=== PATIENT | female | born 1965 | race African-American/Black ===

== ENCOUNTER 2016-04-07 12:48 | Emergency (ER) | payer SELFPAY ==
--- NOTE | 2016-04-07 12:53 | ER Document Report ---
ED Medical Screen (RME) - General Chief Complaint: Chest Pain > 30 Stated Complaint: CHEST PAIN Notes: Patient is a 51-year-old female is complaining of right-sided chest pain. onset: this Am right anterior chest, does not hurt to palpation. with radiation to jaw and arm. +HTN, HLD, -DM, tobacco use stress test greater than a year-nl allergic to ASA and refusing I have greeted and performed a rapid initial assessment of this patient. A comprehensive ED assessment and evaluation of the patient, analysis of test results and completion of the medical decision making process will be conducted by additional ED providers. TRAVEL OUTSIDE OF THE [place] IN LAST 30 DAYS: No - Related Data Allergies/Adverse Reactions: aspirin [Aspirin] Allergy (Verified 04/07/16 12:51) ibuprofen [From Motrin] Allergy (Verified 04/07/16 12:51) iodine [Iodine] Allergy (Verified 04/07/16 12:51) ketorolac tromethamine [From Toradol] Allergy (Verified 04/07/16 12:51) nafarelin [Nafarelin] Allergy (Verified 04/07/16 12:51) naproxen [Naproxen] Allergy (Verified 04/07/16 12:51) Shellfish * [Shellfish] Allergy (Verified 04/07/16 12:51) tramadol HCl [From Ultram] Allergy (Verified 04/07/16 12:51) Past Medical History - Social History Family history: Hypertension, Malignancy - Past Medical History Cardiac Medical History: Reports: Hx Heart Attack, Hx Hypercholesterolemia Neurological Medical History: Reports: Hx Migraine GI Medical History: Reports: Hx Ulcer Musculoskeltal Medical History: Reports Hx Arthritis, Reports Hx Musculoskeletal Deformity, Reports Hx Musculoskeletal Trauma Traumatic Medical History: Reports: Hx Fractures Past Surgical History: Reports: Hx Tubal Ligation - Immunizations Immunizations up to date: Yes Hx Diphtheria, Pertussis, Tetanus Vaccination: Yes
[2016-04-07] MEDS ORDERED: DIPHENHYDRAMINE HCL 25 MG CAPSULE PO ONE (13:02)
--- NOTE | 2016-04-07 13:23 | EKG REPORT ---
SEVERITY:- NORMAL ECG - SINUS RHYTHM : Confirmed by: Nitin Gonzalez MD 07-Apr-2016 13:22:51
[2016-04-07 13:28] LABS: ABSOLUTE EOSINOPHILS # (AUTO) 0.1 10^3/uL (0.0-0.6); ABSOLUTE LYMPHOCYTES (AUTO) 3.3 10^3/uL (0.5-4.7); ABSOLUTE MONOCYTES (AUTO) 0.7 10^3/uL (0.1-1.4); ABSOLUTE NEUT (AUTO) 3.6 10^3/uL (1.7-8.2); BASOPHILS % (AUTO) 0.2 % (0-2); EOSINOPHILS % (AUTO) 0.9 % (0-6); HEMATOCRIT 37.5 % (36.0-47.0); HEMOGLOBIN 12.2 g/dL (12.0-15.5); HGB HCT DIFFERENCE -0.9; LYMPHOCYTES % (AUTO) 42.6 % (13-45); MEAN CORPUSCULAR HEMOGLOBIN 27.5 pg (27.0-33.4); MEAN CORPUSCULAR HGB CONC 32.5 g/dL (32.0-36.0); MEAN CORPUSCULAR VOLUME 85 fl (80-97); MONOCYTES % (AUTO) 8.7 % (3-13); RED BLOOD COUNT 4.43 10^6/uL (3.72-5.28); RED CELL DISTRIBUTION WIDTH 14.3 % (11.5-14.0); SEGMENTED NEUTROPHILS % (AUTO) 47.6 % (42-78); WHITE BLOOD COUNT 7.7 10^3/uL (4.0-10.5)
[2016-04-07 13:48] LABS: ALANINE AMINOTRANSFERASE 20 U/L (9-52); ALBUMIN 4.1 g/dL (3.5-5.0); ALKALINE PHOSPHATASE 58 U/L (38-126); ANION GAP 12 (5-19); ASPARTATE AMINO TRANSFERASE 14 U/L (14-36); BILIRUBIN,TOTAL 0.4 mg/dL (0.2-1.3); BLOOD UREA NITROGEN 9 mg/dL (7-20); CALCIUM 9.5 mg/dL (8.4-10.2); CARBON DIOXIDE 26 mmol/L (22-30); CHLORIDE 101 mmol/L (98-107); CREATINE KINASE 104 U/L (30-135); CREATININE RESULT 0.77 mg/dL (0.52-1.25); GLUCOSE 103 mg/dL (75-110); SODIUM 138.5 mmol/L (137-145); TOTAL PROTEIN 7.4 g/dL (6.3-8.2)
[2016-04-07 14:01] LABS: TROPONIN I < 0.012 ng/mL
--- NOTE | 2016-04-07 16:02 | ER Document Report ---
ED Cardiac - General Time seen by provider: 16:00 Mode of Arrival: Ambulatory Information source: Patient TRAVEL OUTSIDE OF THE [place] IN LAST 30 DAYS: No - HPI Patient complains to provider of: Chest pain <TRENTON ORELLANA - Last Filed: 04/07/16 19:12> <KAREN HYLTON - Last Filed: 04/07/16 22:37> - General Chief Complaint: Chest Pain > 30 Stated Complaint: CHEST PAIN Notes: Patient is a 51-year-old female presenting to the emergency department with complaints of chest pain. Patient states that her pain was onset this morning. Patient states that she has had chest pain before that time of exam patient states that her chest pain feels like indigestion. Patient states that she took some Pepto-Bismol without much relief. Patient also states that she has history of ulcers. Patient states that she is out of her omeprazole and her simvastatin due to a change in her insurance. Patient states her PCP is [facility]. (TRENTON ORELLANA) - Related Data Allergies/Adverse Reactions: aspirin [Aspirin] Allergy (Verified 04/07/16 12:51) ibuprofen [From Motrin] Allergy (Verified 04/07/16 12:51) iodine [Iodine] Allergy (Verified 04/07/16 12:51) ketorolac tromethamine [From Toradol] Allergy (Verified 04/07/16 12:51) nafarelin [Nafarelin] Allergy (Verified 04/07/16 12:51) naproxen [Naproxen] Allergy (Verified 04/07/16 12:51) Shellfish * [Shellfish] Allergy (Verified 04/07/16 12:51) tramadol HCl [From Ultram] Allergy (Verified 04/07/16 12:51) Past Medical History - General Information source: Patient - Social History Smoking Status: Never Smoker Chew tobacco use (# tins/day): No Frequency of alcohol use: None Drug Abuse: None Family History: Hypertension, Malignancy Patient has suicidal ideation: No Patient has homicidal ideation: No - Past Medical History Cardiac Medical History: Reports: Hx Heart Attack, Hx Hypercholesterolemia Neurological Medical History: Reports: Hx Migraine GI Medical History: Reports: Hx Ulcer Musculoskeltal Medical History: Reports Hx Arthritis, Reports Hx Musculoskeletal Deformity, Reports Hx Musculoskeletal Trauma Traumatic Medical History: Reports: Hx Fractures Past Surgical History: Reports: Hx Tubal Ligation - Immunizations Immunizations up to date: Yes Hx Diphtheria, Pertussis, Tetanus Vaccination: Yes <TRENTON ORELLANA - Last Filed: 04/07/16 19:12> Review of Systems - Review of Systems Constitutional: No symptoms reported EENT: No symptoms reported Cardiovascular: See HPI, Chest pain Respiratory: No symptoms reported Gastrointestinal: No symptoms reported Genitourinary: No symptoms reported Female Genitourinary: No symptoms reported Musculoskeletal: No symptoms reported Skin: No symptoms reported Hematologic/Lymphatic: No symptoms reported Neurological/Psychological: No symptoms reported -: Yes All other systems reviewed and negative <TRENTON ORELLANA - Last Filed: 04/07/16 19:12> Physical Exam - Vital signs Interpretation: Normal - General General appearance: Appears well, Alert In distress: Mild - HEENT Head: Normocephalic, Atraumatic Eyes: Normal Pupils: PERRL - Respiratory Respiratory status: No respiratory distress Chest status: Tender - Mild anterior chest wall tenderness to palpation Breath sounds: Normal Chest palpation: Normal - Cardiovascular Rhythm: Regular Heart sounds: Normal auscultation Murmur: No - Abdominal Inspection: Normal Distension: No distension Bowel sounds: Normal Tenderness: Tender - Mild epigastric tenderness to palpation Organomegaly: No organomegaly - Back Back: Normal, Nontender - Extremities General upper extremity: Normal inspection, Normal ROM, Normal strength General lower extremity: Normal inspection, Normal ROM, Normal strength - Neurological Neuro grossly intact: Yes Cognition: Normal Orientation: AAOx4 Jose Coma Scale Eye Opening: Spontaneous [place] Coma Scale Verbal: Oriented Jose Coma Scale Motor: Obeys Commands Jose Coma Scale Total: 15 Speech: Normal - Psychological Associated symptoms: Normal affect, Normal mood - Skin Skin Temperature: Warm Skin Moisture: Dry <TRENTON ORELLANA - Last Filed: 04/07/16 19:12> Course - Laboratory Result Diagrams: 04/07/16 13:12 04/07/16 13:12 <TRENTON ORELLANA - Last Filed: 04/07/16 19:12> - Laboratory Result Diagrams: 04/07/16 13:12 04/07/16 13:12 <KAREN HYLTON - Last Filed: 04/07/16 22:37> - Re-evaluation Re-evalutation: 04/07/16 Patient is a 51-year-old female with a history of reflux. This feels similar to episodes before. EKG within normal limits. Troponin negative 2. Patient feels better after GI cocktail. She'll be discharged home with a prescription for lansoprazole, Carafate, and ranitidine. Return if any worsening or concerning symptoms. Follow up with PMD. Stable for discharge. Understands agrees with plan. (KAREN HYLTON) - Vital Signs Vital signs: Temp Pulse Resp BP Pulse Ox 98.3 F 74 20 121/59 L 99 04/07/16 18:30 04/07/16 18:30 04/07/16 18:30 04/07/16 18:30 04/07/16 18:30 (TRENTON ORELLANA) (KAREN HYLTON) - Laboratory Laboratory results interpreted by me: 04/07/16 13:12 RDW 14.3 H (TRENTON ORELLANA) (KAREN HYLTON) Discharge <TRENTON ORELLANA - Last Filed: 04/07/16 19:12> <KAREN HYLTON - Last Filed: 04/07/16 22:37> - Discharge Clinical Impression: Atypical chest pain GERD (gastroesophageal reflux disease) Qualifiers: Esophagitis presence: with esophagitis Qualified Code(s): K21.0 - Gastro- esophageal reflux disease with esophagitis Condition: Stable Disposition: HOME, SELF-CARE Instructions: Chest Pain of Unclear Cause ([facility]), Reflux Disease (GERD) ([facility]), Gastroenterology Prescriptions: Famotidine 40 mg PO BID #30 tablet Lansoprazole [Prevacid 30 mg Odt Tablet] 30 mg PO ACBRKFST #30 tab.rap. Sucralfate [Carafate 1 gm Tablet] 1 gm PO ACHS #60 tablet Scribe Attestation: 04/07/16 22:37 I personally performed the services described in the documentation, reviewed and edited the documentation which was dictated to the scribe in my presence, and it accurately records my words and actions. (KAREN HYLTON) Scribe Documentation - Scribe Written by Scribe:: Trenton Orellana 04/07/16 19:15 acting as scribe for :: Lulú <TRENTON ORELLANA - Last Filed: 04/07/16 19:12>
[2016-04-07] MEDS ORDERED: FAMOTIDINE 20 MG TABLET PO ONE (17:10)
[2016-04-07] MEDS ORDERED: LANSOPRAZOLE 30 MG TAB.RAP.DR PO ONE (17:10)
[2016-04-07] MEDS ORDERED: SUCRALFATE 1 GM TABLET PO ONE (17:10)
[2016-04-07 18:32] VITALS: BP 121/59
== END 2016-04-07 18:33 | disposition home or self-care (01) ==
LOC: ER 12:48
DX: R07.89 Other chest pain (principal); K21.0 Gastro-esophageal reflux disease with esophagitis; E78.00 Pure hypercholesterolemia, unspecified; Z88.6 Allergy status to analgesic agent; Z91.013 Allergy to seafood; I25.2 Old myocardial infarction; Z98.51 Tubal ligation status
CPT/HCPCS: 36415; 71010; 80053; 82550; 82553; 84484; 85025; 93005; 93010; 99285

== ENCOUNTER 2016-08-17 13:46 | Emergency (ER) | payer SELFPAY ==
--- NOTE | 2016-08-17 15:48 | ER Document Report ---
HPI - HPI Patient complains to provider of: back, knee and heel pain Pain Level: 5 Context: 51-year-old female status emergency department complaining of lower back pain, right knee pain right heel pain. Patient states she has a history of lumbar degenerative disc disease diagnosed 2014. She was on pain management up until November 2015 when she lost her medications the longer to continue her care there. Patient states that her pain is in the center of her back with associated sciatica of the right leg. There is a stool incontinence, saddle anesthesia. Her right knee pain she states is worse in the morning but improves as the day. She states her whole knee hurts with movement. Worse getting up into a car. She also admits to right heel pain which is worse at night after being on her feet all day. Her knee pain and foot pain and due to her for the past month. 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 Denies any trauma No primary care provider Past medical history significant for hyperlipidemia Past surgical history significant for tubal ligation Allergies to aspirin products - CARDIOVASCULAR Cardiovascular: DENIES: Chest pain - REPRODUCTIVE Reproductive: DENIES: : - DERM Skin Color: Normal Past Medical History - Social History Smoking Status: Unknown if Ever Smoked Chew tobacco use (# tins/day): No Drug Abuse: None Family History: Hypertension, Malignancy Patient has suicidal ideation: No Patient has homicidal ideation: No - Past Medical History Cardiac Medical History: Reports: Hx Heart Attack, Hx Hypercholesterolemia Neurological Medical History: Reports: Hx Migraine Renal/ Medical History: Denies: Hx Peritoneal Dialysis GI Medical History: Reports: Hx Ulcer Musculoskeltal Medical History: Reports Hx Arthritis, Reports Hx Musculoskeletal Deformity, Reports Hx Musculoskeletal Trauma Traumatic Medical History: Reports: Hx Fractures Past Surgical History: Reports: Hx Tubal Ligation - Immunizations Immunizations up to date: Yes Hx Diphtheria, Pertussis, Tetanus Vaccination: Yes Vertical Provider Document - CONSTITUTIONAL Agree With Documented VS: Yes Exam Limitations: No Limitations General Appearance: WD/WN, No Apparent Distress - INFECTION CONTROL TRAVEL OUTSIDE OF THE [place] IN LAST 30 DAYS: No - RESPIRATORY O2 Sat by Pulse Oximetry: 99 - BACK Back: Normal Inspection Notes: no tenderness, deformity, step-offs. Right lumbar paraspinous muscle tenderness with recreation of sciatic nerve pain. - MUSCULOSKELETAL/EXTREMETIES Musculoskeletal/Extremeties: MAEW, FROM, Tender - base of the foot at the calcanus, No Edema Notes: Valgus and varus stress test bilaterally, negative drawer test. - NEURO Level of Consciousness: Awake, Alert, Appropriate Motor/Sensory: No Motor Deficit, No Sensory Deficit - DERM Integumentary: Warm, Dry, No Rash Course - Re-evaluation Re-evalutation: 08/17/16 15:48 Patient is a 51-year-old female who was seen in physical, no acute distress afebrile. Presents today with complaints of back pain, knee pain and heel pain is been persistent for 1 month. Patient's back pain is consistent with her history of lumbar degenerative disc disease. 08/17/16 16:52 Evidence of fracture dislocation noted on the x-ray or fracture. No evidence of bone spurs. Findings are consistent with possible internal knee injury versus developing arthritis. She will pain consistent with tendon or ligament injury of the foot. Discussed with patient for better supportive shoes and follow-up with primary care The patient presents with low back pain without signs of spinal cord compression , cauda equina syndrome, infection, aneurysm, or other serious etiology. The patient is neurologically intact. Given the extremely low risk of these diagnoses further testing and evaluation for these possibilities does not appear to be indicated at this time. The patient has been instructed to return if the symptoms worsen or change in any way. - Vital Signs Vital signs: Temp Pulse Resp BP Pulse Ox 98.7 F 70 16 134/74 H 99 08/17/16 13:51 08/17/16 13:51 08/17/16 13:51 08/17/16 13:51 08/17/16 13:51 - Diagnostic Test Radiology reviewed: Image reviewed, Reports reviewed Discharge - Discharge Clinical Impression: Chronic low back pain, Right knee pain, Right foot pain Condition: Good Disposition: HOME, SELF-CARE Instructions: Ice Packs ([facility]), Low Back Pain ([facility]), Warm Packs ([facility]), Tendonitis ([facility]), Suspected Internal Knee Injury ([facility]) Additional Instructions: Please follow up with a primary care office listed to establish care Prescriptions: Cyclobenzaprine HCl [Flexeril 10 mg Tablet] 10 mg PO TIDP PRN #15 tab PRN Reason: Forms: Elevated Blood Pressure Referrals: [facility] [Provider Group] - Follow up as needed [facility] [Provider Group] - Follow up in 1 week
[2016-08-17] MEDS ORDERED: HYDROCODONE/ACETAMINOPHEN 5-325 MG TABLET PO ONE (16:27)
[2016-08-17] MEDS ORDERED: CYCLOBENZAPRINE HCL 10 MG TABLET PO ONE (16:28)
--- NOTE | 2016-08-17 16:32 | RADIOLOGY REPORT (SQ) ---
EXAM DESCRIPTION: KNEE RIGHT 2 VIEWS COMPLETED DATE/TIME: 08/17/2016 4:18 pm REASON FOR STUDY: pain COMPARISON: None. NUMBER OF VIEWS: Two views. TECHNIQUE: AP and lateral radiographic images acquired of the right knee. LIMITATIONS: None. FINDINGS: MINERALIZATION: Normal. BONES: No acute fracture or dislocation. No worrisome bone lesions. JOINT: No effusion. SOFT TISSUES: No soft tissue swelling. No radio-opaque foreign body. OTHER: No other significant finding. IMPRESSION: NEGATIVE STUDY OF THE RIGHT KNEE. NO RADIOGRAPHIC EVIDENCE OF ACUTE INJURY. TECHNICAL DOCUMENTATION: JOB ID: [id number] [employer]- All Rights Reserved
--- NOTE | 2016-08-17 16:32 | RADIOLOGY REPORT (SQ) ---
EXAM DESCRIPTION: FOOT RIGHT 2 VIEWS COMPLETED DATE/TIME: 08/17/2016 4:19 pm REASON FOR STUDY: pain COMPARISON: None. NUMBER OF VIEWS: Three views. TECHNIQUE: AP, lateral and oblique radiographic images acquired of the right foot. LIMITATIONS: None. FINDINGS: MINERALIZATION: Normal. BONES: No acute fracture or dislocation. No worrisome bone lesions. JOINTS: No effusions. SOFT TISSUES: No soft tissue swelling. No foreign body. OTHER: No other significant finding. IMPRESSION: NEGATIVE STUDY OF THE RIGHT FOOT. NO RADIOGRAPHIC EVIDENCE OF ACUTE INJURY. TECHNICAL DOCUMENTATION: JOB ID: [id number] [employer]- All Rights Reserved
[2016-08-17 17:23] VITALS: BP 132/84
== END 2016-08-17 17:24 | disposition home or self-care (01) ==
LOC: ER 13:46
DX: M54.5 Low back pain (principal); G89.29 Other chronic pain; M54.9 Dorsalgia, unspecified; M25.561 Pain in right knee; M25.551 Pain in right hip; M79.671 Pain in right foot
CPT/HCPCS: 99283

== ENCOUNTER 2017-04-06 14:59 | Emergency (ER) | payer SELFPAY ==
[2017-04-06] MEDS ORDERED: DEXAMETHASONE SOD PHOS INJ 10 MG/1 ML VIAL IM ONE (16:43)
--- NOTE | 2017-04-06 16:44 | ER Document Report ---
HPI - HPI Pain Level: 3 Notes: Patient is a 52-year-old female with a history of chronic low back pain who presents ED complaining of continued pain since she stopped getting seen by pain management due to insurance issues. Patient states that the pain is the same as it was and is in her lower back and occasionally radiate down in her lower extremities on the anterior thighs. She has not had any recent injections nor any surgeries to her lower back. She denies any diabetes or IV drug use. Denies any previous history of abscesses. Denies any other recent illness. Patient states that she is still ambulatory without any difficulties otherwise. She is eating and drinking without difficulties. She is urinating normally having normal bowel movements. She has an extensive allergy history, see chart. Denies any headache, fever, neck pain, URI, sore throat, chest pain , palpitations, syncope, cough, shortness of breath, wheeze, dyspnea, abdominal pain, nausea/vomiting/diarrhea, urinary retention, dysuria, hematuria, loss of control of bowel or bladder, numbness/tingling, saddle anesthesia, muscle paralysis/weakness, or rash. - ROS Systems Reviewed and Negative: Yes All other systems reviewed and negative - REPRODUCTIVE Reproductive: DENIES: : Past Medical History - Social History Smoking Status: Never Smoker Chew tobacco use (# tins/day): Yes Frequency of alcohol use: None Drug Abuse: None Family History: Hypertension, Malignancy Patient has suicidal ideation: No Patient has homicidal ideation: No - Past Medical History Cardiac Medical History: Reports: Hx Heart Attack, Hx Hypercholesterolemia Neurological Medical History: Reports: Hx Migraine Renal/ Medical History: Denies: Hx Peritoneal Dialysis GI Medical History: Reports: Hx Ulcer Musculoskeltal Medical History: Reports Hx Arthritis, Reports Hx Musculoskeletal Deformity, Reports Hx Musculoskeletal Trauma Traumatic Medical History: Reports: Hx Fractures Past Surgical History: Reports: Hx Tubal Ligation - Immunizations Immunizations up to date: Yes Hx Diphtheria, Pertussis, Tetanus Vaccination: Yes Vertical Provider Document - CONSTITUTIONAL Agree With Documented VS: Yes Notes: PHYSICAL EXAMINATION: GENERAL: Well-appearing, well-nourished and in no acute distress. LUNGS: Breath sounds clear to auscultation bilaterally and equal. No wheezes rales or rhonchi. HEART: Regular rate and rhythm without murmurs, rubs, gallops. ABDOMEN: Soft, nontender, nondistended abdomen. No guarding, no rebound. No masses appreciated. Normal bowel sounds present. No CVA tenderness bilaterally. No pulsatile mass Musculoskeletal: LE's b/l: FROM to passive/active. Strength 5+/5. No deficits noted. No bony tenderness of extremities. Back: FROM to passive/active. Strength 5+/5. No vertebral point tenderness, stepoffs, or deformities. No other bony tenderness, erythema, swelling, or ecchymosis. SLR negative b/l. + mild tenderness to the L-paraspinal mm b/l. Mild spasming. No SI jt tenderness. No foot drop Extremities: No cyanosis, clubbing, or edema b/l. Peripheral pulses 2+. Capillary refill less than 2 seconds. NEUROLOGICAL: Normal speech, normal gait. Normal sensory, motor exams. Reflexes 2+ b/l. PSYCH: Normal mood, normal affect. SKIN: Warm, Dry, normal turgor, no rashes or lesions noted. - INFECTION CONTROL TRAVEL OUTSIDE OF THE [place] IN LAST 30 DAYS: No - RESPIRATORY O2 Sat by Pulse Oximetry: 99 Course - Re-evaluation Re-evalutation: 04/06/17 16:47 Patient is an afebrile, well-hydrated, 52-year-old female who presents the ED with chronic low back pain. Vitals are stable. PE is otherwise unremarkable for any focal neurological deficits. Decadron given IM today. I will send her home with a prescription for baclofen. No other labs or imaging warranted at this time based on H&P. Low suspicion for any meningitis, fracture, expanding/ ruptured AAA, cauda equina syndrome, epidural mass lesion/abscess, herniated disc causing severe spinal stenosis, or other systemic infection at this time. Patient is aware that this condition can change from initial presentation and that she needs monitor symptoms closely for any acute changes. Conservative measures otherwise for symptoms. Recheck with your PCM in 3-5 days. Consider consult with orthopedics/physical therapy. Return to the ED with any worsening/ concerning symptoms otherwise as reviewed discharge. Patient is in agreement. - Vital Signs Vital signs: Temp Pulse Resp BP Pulse Ox 99.2 F 74 16 150/71 H 99 04/06/17 15:07 04/06/17 15:07 04/06/17 15:07 04/06/17 15:04/06/17 15:07 Discharge - Discharge Clinical Impression: Chronic low back pain Qualifiers: Back pain laterality: bilateral Sciatica presence: unspecified whether sciatica present Qualified Code(s): M54.5 - Low back pain Condition: Stable Disposition: HOME, SELF-CARE Instructions: Ice Packs ([facility]), Low Back Pain ([facility]), Muscle Strain ([facility]), Stretching Exercises for the Back ([facility]), Warm Packs ([facility]) Additional Instructions: Rest, Ice Tylenol/ibuprofen as needed Light stretches daily Strength exercises as able Moist heat and massage may help F/u with your PCP in 3-5 days for a recheck Consider consult(s) with Orthopedics/physical therapy for ongoing/worsening symptoms Return to the ED with any worsening symptoms and/or development of fever, headache, chest pain, palpitations, syncope, shortness of breath, trouble breathing, abdominal pain, n/v/d, blood in stool/urine, loss of control of bowel /bladder, urinary retention, muscle weakness/paralysis, saddle anesthesia, numbness/tingling, or other worsening symptoms that are concerning to you. Prescriptions: Baclofen [Baclofen 10 mg Tablet] 5 - 10 mg PO BID PRN #10 tablet PRN Reason: Forms: Elevated Blood Pressure Referrals: [facility] [Provider Group] - Follow up as needed
[2017-04-06 17:05] VITALS: BP 144/74
== END 2017-04-06 17:10 | disposition home or self-care (01) ==
LOC: ER 14:59
DX: G89.29 Other chronic pain (principal); M54.5 Low back pain; R25.2 Cramp and spasm; I25.2 Old myocardial infarction
CPT/HCPCS: 99283; 96372; J1100

== ENCOUNTER 2017-05-13 19:03 | Emergency (ER) | payer SELFPAY ==
[2017-05-13] MEDS ORDERED: BENZONATATE 100 MG CAPSULE PO ONE (19:38)
[2017-05-13] MEDS ORDERED: ACETAMINOPHEN 325 MG TABLET PO ONE (19:38)
[2017-05-13] MEDS ORDERED: IPRATROPIUM/ALBUTEROL 0.5-2.5 MG/3 ML AMPUL NEB ONE (19:38)
[2017-05-13] MEDS ORDERED: OXYMETAZOLINE HCL 0.05% NASAL SPRAY 15 ML BOTTLE NASL ONE (19:46)
[2017-05-13] MEDS ORDERED: DIPHENHYDRAMINE HCL 25 MG CAPSULE PO ONE (19:46)
[2017-05-13] MEDS ORDERED: DEXAMETHASONE 4 MG TABLET PO ONE (19:46)
--- NOTE | 2017-05-13 19:50 | ER Document Report ---
ED General - General Chief Complaint: Fever Stated Complaint: FEVER Time Seen by Provider: 05/13/17 19:36 Notes: Patient is a 52-year-old female who presents with concerns of 3-4 days of cough , nasal congestion, body aches and subjective fever. Patient reports that her symptoms have been worsening since onset. She has been trying oabi-hxc-mnyyess decongestants without any improvement in her symptoms. Nothing seems to worsen her symptoms. She denies a recent history of similar symptoms. She has not seen a primary care doctor regarding today's concerns. She denies any syncope, vomiting, diarrhea, or inability to tolerate fluids. She does not smoke. She denies any history of asthma or COPD. No known sick contacts. TRAVEL OUTSIDE OF THE [place] IN LAST 30 DAYS: No - Related Data Allergies/Adverse Reactions: adhesive Allergy (Verified 04/06/17 15:00) aspirin [Aspirin] Allergy (Verified 04/06/17 15:00) ibuprofen [From Motrin] Allergy (Verified 04/06/17 15:00) iodine [Iodine] Allergy (Verified 04/06/17 15:00) ketorolac tromethamine [From Toradol] Allergy (Verified 04/06/17 15:00) nafarelin [Nafarelin] Allergy (Verified 04/06/17 15:00) naproxen [Naproxen] Allergy (Verified 04/06/17 15:00) Shellfish * [Shellfish] Allergy (Verified 04/06/17 15:00) tramadol HCl [From Ultram] Allergy (Verified 04/06/17 15:00) Past Medical History - General Information source: Patient - Social History Smoking Status: Never Smoker Frequency of alcohol use: None Drug Abuse: None Lives with: Family Family History: Hypertension, Malignancy - Past Medical History Cardiac Medical History: Reports: Hx Heart Attack, Hx Hypercholesterolemia Neurological Medical History: Reports: Hx Migraine Renal/ Medical History: Denies: Hx Peritoneal Dialysis GI Medical History: Reports: Hx Ulcer Musculoskeltal Medical History: Reports Hx Arthritis, Reports Hx Musculoskeletal Deformity, Reports Hx Musculoskeletal Trauma Traumatic Medical History: Reports: Hx Fractures Past Surgical History: Reports: Hx Tubal Ligation - Immunizations Immunizations up to date: Yes Hx Diphtheria, Pertussis, Tetanus Vaccination: Yes Review of Systems - Review of Systems Notes: Constitutional: Positive for subjective fever HENT: Negative for sore throat. Eyes: Negative for visual changes. Cardiovascular: Negative for chest pain. Respiratory: Positive for cough Gastrointestinal: Negative for abdominal pain, vomiting or diarrhea. Genitourinary: Negative for dysuria. Musculoskeletal: Negative for back pain. Skin: Negative for rash. Neurological: Negative for headaches, weakness or numbness. 10 point ROS negative except as marked above and in HPI. Physical Exam - Vital signs Vitals: Temp Pulse Resp BP Pulse Ox 99.3 F 99 20 115/55 L 98 05/13/17 19:19 05/13/17 19:19 05/13/17 19:19 05/13/17 19:19 05/13/17 19:19 Interpretation: Normal Notes: PHYSICAL EXAMINATION: GENERAL: Well-appearing, well-nourished and in no acute distress. HEAD: Atraumatic, normocephalic. EYES: Pupils equal round and reactive to light, extraocular movements intact, sclera anicteric, conjunctiva are normal. ENT: Nasal congestion, oropharynx clear without exudates. Moist mucous membranes. NECK: Normal range of motion, supple without lymphadenopathy LUNGS: Breath sounds clear to auscultation bilaterally and equal. No wheezes rales or rhonchi. HEART: Regular rate and rhythm without murmurs ABDOMEN: Soft, nontender, normoactive bowel sounds. No guarding, no rebound. No masses appreciated. EXTREMITIES: Normal range of motion, no pitting or edema. No cyanosis. NEUROLOGICAL: No focal neurological deficits. Moves all extremities spontaneously and on command. PSYCH: Normal mood, normal affect. SKIN: Warm, Dry, normal turgor, no rashes or lesions noted. Course - Re-evaluation Re-evalutation: 05/13/17 19:47 Patient presents with cough, vomiting, diarrhea, and fever at home consistent with a flulike illness although we do not have an influenza test available to confirm. Clinical history and exam is not consistent with an acute bacterial meningitis, encephalitis, pneumonia, there is no evidence of a cellulitis on examination. Patient likewise denies any urinary symptoms. Chest x-ray is clear without any evidence of an acute pneumonia. Patient does not have any focal abdominal tenderness to suggest an acute biliary pathology, acute appendicitis, acute mesenteric ischemia, bowel obstruction, bowel, or any other life-threatening acute intra-abdominal pathology as the etiology of the fever and additional symptoms today. Labs are otherwise unremarkable. Patient has tolerated oral intake without difficulty. Vitals at time of reassessment are within normal limits. At this time will discharge with return precautions and follow-up recommendations. Verbal discharge instructions given a the bedside and opportunity for questions given. Medication warnings reviewed. Patient is in agreement with this plan and has verbalized understanding of return precautions and the need for primary care follow-up in the next 24-72 hours. - Vital Signs Vital signs: Temp Pulse Resp BP Pulse Ox 99 F 88 18 120/68 99 05/13/17 20:56 05/13/17 20:56 05/13/17 20:56 05/13/17 20:56 05/13/17 20:56 - Diagnostic Test Radiology reviewed: Image reviewed, Reports reviewed Radiology results interpreted by me: 05/13/17 19:48 Chest x-ray: No acute infiltrate or pneumothorax Discharge - Discharge Clinical Impression: Cough, Lower respiratory tract infection, Nasal congestion Fever Qualifiers: Fever type: unspecified Qualified Code(s): R50.9 - Fever, unspecified Condition: Good Disposition: HOME, SELF-CARE Additional Instructions: Your symptoms are likely due to a viral infection either influenza or similar virus. The only treatment at this time is supportive care including drinking plenty of fluids, Tylenol and ibuprofen, the nasal decongestant and cough medicine with which you were sent home. Your symptoms will likely last for 7- 10 days. Please return to the emergency department immediately if you become confused, have persistent vomiting, pass out, have severe headache, or have any other symptoms that are worrisome to you. Follow-up with your primary care doctor in the next several days. Prescriptions: Benzonatate [Tessalon Perles 100 mg Capsule] 100 mg PO Q8HP PRN #40 capsule PRN Reason: Forms: Return to Work
--- NOTE | 2017-05-13 20:25 | RADIOLOGY REPORT (SQ) ---
EXAM DESCRIPTION: CHEST SINGLE VIEW COMPLETED DATE/TIME: 05/13/2017 8:12 pm REASON FOR STUDY: cough, fever COMPARISON: 04/07/2016 EXAM PARAMETERS: NUMBER OF VIEWS: One view. TECHNIQUE: Single frontal radiographic view of the chest acquired. RADIATION DOSE: NA LIMITATIONS: None. FINDINGS: LUNGS AND PLEURA: No opacities, masses or pneumothorax. No pleural effusion. MEDIASTINUM AND HILAR STRUCTURES: No masses. Contour normal. HEART AND VASCULAR STRUCTURES: Heart normal in size. Normal vasculature. BONES: No acute findings. HARDWARE: None in the chest. OTHER: No other significant finding. IMPRESSION: NO ACUTE RADIOGRAPHIC FINDING IN THE CHEST. TECHNICAL DOCUMENTATION: JOB ID: [id number] [employer]- All Rights Reserved Reading location - IP/workstation name: [email or web address]
[2017-05-13 20:57] VITALS: BP 120/68
--- NOTE | 2017-05-13 23:54 | EKG REPORT ---
SEVERITY:- BORDERLINE ECG - SINUS RHYTHM PROBABLE LEFT ATRIAL ABNORMALITY BORDERLINE T ABNORMALITIES, ANT-LAT LEADS : Confirmed by: Nitin Gonzalez MD 13-May-2017 23:53:36
== END 2017-05-13 20:56 | disposition home or self-care (01) ==
LOC: ER 19:03
DX: J22 Unspecified acute lower respiratory infection (principal); R50.9 Fever, unspecified; R05 Cough; R09.81 Nasal congestion; E78.00 Pure hypercholesterolemia, unspecified; Z88.6 Allergy status to analgesic agent; Z91.013 Allergy to seafood; I25.2 Old myocardial infarction; Z98.51 Tubal ligation status
CPT/HCPCS: 93005; 94640; 99284; 71045; 93010; J3490; J7620

== ENCOUNTER 2017-09-07 21:14 | Emergency (ER) | payer SELFPAY ==
--- NOTE | 2017-09-07 22:59 | ER Document Report ---
ED Medical Screen (RME) - General Chief Complaint: Abdominal Pain Stated Complaint: ABDOMINAL PAIN Time Seen by Provider: 09/07/17 22:56 Mode of Arrival: Ambulatory Information source: Patient Notes: 52-year-old female presented to ED for complaint of pain. The right back and abdomen radiating down the right leg. She states she has been having bowel movements okay and she is not having any urinary symptoms but the pain is pretty sharp. Patient is very tender to the touch to the right back and abdomen. I have greeted and performed a rapid initial assessment of this patient. A comprehensive ED assessment and evaluation of the patient, analysis of test results and completion of medical decision making process will be conducted by an additional ED providers. TRAVEL OUTSIDE OF THE [place] IN LAST 30 DAYS: No - Related Data Allergies/Adverse Reactions: adhesive Allergy (Verified 04/06/17 15:00) aspirin [Aspirin] Allergy (Verified 04/06/17 15:00) ibuprofen [From Motrin] Allergy (Verified 04/06/17 15:00) iodine [Iodine] Allergy (Verified 04/06/17 15:00) ketorolac tromethamine [From Toradol] Allergy (Verified 04/06/17 15:00) nafarelin [Nafarelin] Allergy (Verified 04/06/17 15:00) naproxen [Naproxen] Allergy (Verified 04/06/17 15:00) Shellfish * [Shellfish] Allergy (Verified 04/06/17 15:00) tramadol HCl [From Ultram] Allergy (Verified 04/06/17 15:00) Past Medical History - Social History Family history: Hypertension, Malignancy - Past Medical History Cardiac Medical History: Reports: Hx Heart Attack, Hx Hypercholesterolemia Neurological Medical History: Reports: Hx Migraine Renal/ Medical History: Denies: Hx Peritoneal Dialysis GI Medical History: Reports: Hx Ulcer Musculoskeltal Medical History: Reports Hx Arthritis, Reports Hx Musculoskeletal Deformity, Reports Hx Musculoskeletal Trauma Traumatic Medical History: Reports: Hx Fractures Past Surgical History: Reports: Hx Tubal Ligation - Immunizations Immunizations up to date: Yes Hx Diphtheria, Pertussis, Tetanus Vaccination: Yes Physical Exam - Vital signs Vitals: Temp Pulse Resp BP Pulse Ox 99.3 F 81 15 136/68 H 98 09/07/17 21:24 09/07/17 21:24 09/07/17 21:24 09/07/17 21:24 09/07/17 21:24 Course - Vital Signs Vital signs: Temp Pulse Resp BP Pulse Ox 99.3 F 81 15 136/68 H 98 09/07/17 21:24 09/07/17 21:24 09/07/17 21:24 09/07/17 21:24 09/07/17 21:24
[2017-09-07 23:07] LABS: APPEARANCE,URINE SLIGHTLY-CLOUDY; BILIRUBIN,URINE NEGATIVE (NEGATIVE); COLOR,URINE YELLOW; GLUCOSE, URINE NEGATIVE (NEGATIVE); KETONES,URINE NEGATIVE (NEGATIVE); LEUKOCYTE ESTERASE,URINE NEGATIVE (NEGATIVE); NITRITE,URINE NEGATIVE (NEGATIVE); PROTEIN,URINE NEGATIVE (NEGATIVE); URINE SPECIFIC GRAVITY 1.028
[2017-09-07 23:29] LABS: ABSOLUTE BASOPHILS # (AUTO) 0.1 10^3/uL (0.0-0.2); ABSOLUTE EOSINOPHILS # (AUTO) 0.1 10^3/uL (0.0-0.6); ABSOLUTE LYMPHOCYTES (AUTO) 3.5 10^3/uL (0.5-4.7); ABSOLUTE MONOCYTES (AUTO) 1.1 10^3/uL (0.1-1.4); ABSOLUTE NEUT (AUTO) 5.3 10^3/uL (1.7-8.2); BASOPHILS % (AUTO) 0.9 % (0-2); EOSINOPHILS % (AUTO) 1.2 % (0-6); HEMOGLOBIN 12.1 g/dL (12.0-15.5); LYMPHOCYTES % (AUTO) 34.6 % (13-45); MEAN CORPUSCULAR HEMOGLOBIN 27.8 pg (27.0-33.4); MEAN CORPUSCULAR HGB CONC 32.7 g/dL (32.0-36.0); MEAN CORPUSCULAR VOLUME 85 fl (80-97); MONOCYTES % (AUTO) 10.5 % (3-13); PLATELET COUNT 287 10^3/uL (150-450); RED BLOOD COUNT 4.36 10^6/uL (3.72-5.28); RED CELL DISTRIBUTION WIDTH 15.3 % (11.5-14.0); SEGMENTED NEUTROPHILS % (AUTO) 52.8 % (42-78); TOTAL CELLS COUNTED % (AUTO) 100 %
[2017-09-07 23:41] LABS: ALANINE AMINOTRANSFERASE 17 U/L (9-52); ALKALINE PHOSPHATASE 56 U/L (38-126); ANION GAP 11 (5-19); ASPARTATE AMINO TRANSFERASE 14 U/L (14-36); BILIRUBIN,DIRECT 0.3 mg/dL (0.0-0.4); BILIRUBIN,TOTAL 0.3 mg/dL (0.2-1.3); BLOOD UREA NITROGEN 11 mg/dL (7-20); CALCIUM 9.1 mg/dL (8.4-10.2); CARBON DIOXIDE 27 mmol/L (22-30); CHLORIDE 104 mmol/L (98-107); GLUCOSE 86 mg/dL (75-110); LIPASE 60.4 U/L (23-300); POTASSIUM 3.7 mmol/L (3.6-5.0); SODIUM 141.8 mmol/L (137-145); TOTAL PROTEIN 7.4 g/dL (6.3-8.2)
--- NOTE | 2017-09-08 01:33 | RADIOLOGY REPORT (SQ) ---
EXAM DESCRIPTION: CT ABDOMEN PELVIS WITHOUT IV CONTRAST COMPLETED DATE/TME: 09/07/2017 23:54 CLINICAL HISTORY: right flank pain COMPARISON: None Available. TECHNIQUE: CT of the abdomen and pelvis without IV contrast. Evaluation of the solid organs and vasculature is suboptimal due to lack of IV contrast. DLP: 861.58 mGy-cm FINDINGS: Lung Bases: The visualized lung bases are clear. Bones: No destructive bone lesions identified. Abdomen: Liver: The liver has normal size and density. Gallbladder: Calcified gallstones. No pericholecystic inflammatory change identified. Spleen, Pancreas, and Adrenal Glands: The spleen, pancreas, and adrenal glands are unremarkable. Kidneys: The kidneys have normal size and contour without evidence of hydronephrosis. No obstructing ureteral calculi. There is a 1.4 cm exophytic structure arising from the inferior pole of the left kidney with low density which may represent a cyst however is incompletely characterized on this study. Vasculature: The aorta and IVC have normal caliber and position. Stomach: The stomach and duodenum have normal course. Other: No free intraperitoneal air. No free fluid or lymphadenopathy. Pelvis: Bladder: Urinary bladder is unremarkable. Bowel: Scattered diverticula of the colon without pericolic inflammatory change. Appendix: Normal appendix. Pelvis: IUD identified in the uterus. IMPRESSION: 1. Cholelithiasis without other CT evidence of acute cholecystitis. 2. Diverticulosis without evidence of acute diverticulitis. 3. No obstructing ureteral calculi. 4. There is a 1.4 cm exophytic structure arising from the inferior pole of the left kidney which may represent a cyst however it is incompletely characterized on this study. Correlation with nonemergent renal ultrasound recommended. 5. IUD visualized. This exam was performed according to our departmental dose-optimization program, which includes automated exposure control, adjustment of the mA and/or kV according to patient size and/or use of iterative reconstruction technique.
--- NOTE | 2017-09-08 02:33 | ER Document Report ---
ED General - General Chief Complaint: Abdominal Pain Stated Complaint: ABDOMINAL PAIN Time Seen by Provider: 09/07/17 22:56 Mode of Arrival: Ambulatory Notes: Patient is a 52 year old female who presents with 4 days of right side pain. The patient describes it as a throbbing, stabbing, aching pain that radiates from her right flank into her right lower abdomen and her legs. She describes this pain as having a gradual onset and having been persistent since that time although not worsening. She has not tried anything to improve her pain. She notes that movement worsens the pain. She denies a history of similar symptoms in the past. She has not seen her general doctor regarding today's concerns. She denies any associated fever or constitutional symptoms. No vaginal bleeding , dysuria, vaginal discharge, vomiting or diarrhea. She denies any known injury to the area. TRAVEL OUTSIDE OF THE [place] IN LAST 30 DAYS: No - Related Data Allergies/Adverse Reactions: adhesive Allergy (Verified 04/06/17 15:00) aspirin [Aspirin] Allergy (Verified 04/06/17 15:00) ibuprofen [From Motrin] Allergy (Verified 04/06/17 15:00) iodine [Iodine] Allergy (Verified 04/06/17 15:00) ketorolac tromethamine [From Toradol] Allergy (Verified 04/06/17 15:00) nafarelin [Nafarelin] Allergy (Verified 04/06/17 15:00) naproxen [Naproxen] Allergy (Verified 04/06/17 15:00) Shellfish * [Shellfish] Allergy (Verified 04/06/17 15:00) tramadol HCl [From Ultram] Allergy (Verified 04/06/17 15:00) Past Medical History - General Information source: Patient - Social History Smoking Status: Never Smoker Frequency of alcohol use: None Drug Abuse: None Lives with: Spouse/Significant other Family History: Reviewed & Not Pertinent, Hypertension, Malignancy Patient has suicidal ideation: No Patient has homicidal ideation: No - Past Medical History Cardiac Medical History: Reports: Hx Heart Attack, Hx Hypercholesterolemia Neurological Medical History: Reports: Hx Migraine Renal/ Medical History: Denies: Hx Peritoneal Dialysis GI Medical History: Reports: Hx Ulcer Musculoskeletal Medical History: Reports Hx Arthritis, Reports Hx Musculoskeletal Deformity, Reports Hx Musculoskeletal Trauma Traumatic Medical History: Reports: Hx Fractures Past Surgical History: Reports: Hx Tubal Ligation - Immunizations Immunizations up to date: Yes Hx Diphtheria, Pertussis, Tetanus Vaccination: Yes Review of Systems - Review of Systems Notes: Constitutional: Negative for fever. HENT: Negative for sore throat. Eyes: Negative for visual changes. Cardiovascular: Negative for chest pain. Respiratory: Negative for shortness of breath. Gastrointestinal: Positive for right-sided abdominal pain Genitourinary: Negative for dysuria. Musculoskeletal: Positive for right flank and right oblique tenderness Skin: Negative for rash. Neurological: Negative for headaches, weakness or numbness. 10 point ROS negative except as marked above and in HPI. Physical Exam - Vital signs Vitals: Temp Pulse Resp BP Pulse Ox 99.3 F 81 15 136/68 H 98 09/07/17 21:24 09/07/17 21:24 09/07/17 21:24 09/07/17 21:24 09/07/17 21:24 Interpretation: Normal Notes: PHYSICAL EXAMINATION: GENERAL: Well-appearing, well-nourished and in no acute distress. HEAD: Atraumatic, normocephalic. EYES: Pupils equal round and reactive to light, extraocular movements intact, sclera anicteric, conjunctiva are normal. ENT: nares patent, oropharynx clear without exudates. Moist mucous membranes. NECK: Normal range of motion, supple without lymphadenopathy LUNGS: Breath sounds clear to auscultation bilaterally and equal. No wheezes rales or rhonchi. HEART: Regular rate and rhythm without murmurs ABDOMEN: Soft, nontender, normoactive bowel sounds. No guarding, no rebound. No masses appreciated. Mild pain on palpation of the right oblique muscle. EXTREMITIES: Normal range of motion, no pitting or edema. No cyanosis. NEUROLOGICAL: No focal neurological deficits. Moves all extremities spontaneously and on command. PSYCH: Normal mood, normal affect. SKIN: Warm, Dry, normal turgor, no rashes or lesions noted. Course - Re-evaluation Re-evalutation: 09/08/17 02:29 Patient presents with 4 days of right low flank tenderness radiating into her lower right lower abdomen. Patient is resting calmly at the time of my initial assessment. While in appearance, vitals within normal limits. Abdominal exam is very benign without any areas of abdominal tenderness. She has no distinct right CVA tenderness. Her pain appears to be mostly located over her right side over her oblique muscles on the right side. Her labs are unremarkable with exception of hematuria although she is on her menstrual cycle. CT abdomen pelvis does not show any acute findings, no evidence of nephrolithiasis. Based on her reassuring exam, vitals in assessment I am uncertain of the exact etiology although I suspect a possible musculoskeletal strain. I discussed this with the patient at length and will empirically treat her with Voltaren gel bodies are in intolerance due to stomach irritation. A left kidney cyst was identified on CT and ultrasound follow-up was recommended. I have discussed this with the patient and provided her a copy of her CT report. At this time will discharge with return precautions and follow-up recommendations. Verbal discharge instructions given a the bedside and opportunity for questions given. Medication warnings reviewed. Patient is in agreement with this plan and has verbalized understanding of return precautions and the need for primary care follow-up in the next 24-72 hours. - Vital Signs Vital signs: Temp Pulse Resp BP Pulse Ox 98.5 F 61 16 131/73 H 98 09/08/17 02:40 09/08/17 02:40 09/08/17 02:40 09/08/17 02:40 09/08/17 02:40 - Laboratory Result Diagrams: 09/07/17 23:10 09/07/17 23:10 Laboratory results interpreted by me: 09/07/17 09/07/17 21:40 23:10 RDW 15.3 H Urine Blood MODERATE H Urine Urobilinogen 2.0 H - Diagnostic Test Radiology reviewed: Reports reviewed Discharge - Discharge Clinical Impression: Right flank pain, Right lower quadrant abdominal pain Condition: Good Disposition: HOME, SELF-CARE Additional Instructions: You have been seen in the Emergency Department (ED) for abdominal pain. Your evaluation did not identify a clear cause of your symptoms but was generally reassuring. Your pain may be related to the muscles of your lower abdominal wall. Use the Voltaren gel as prescribed. Please follow up with your doctor as soon as possible regarding today's emergent visit and the symptoms that are bothering you. Please also follow-up regarding the incidental finding of a possible left-sided kidney cyst on the CT report. Return to the ED if your abdominal pain worsens or fails to improve, you develop bloody vomiting, bloody diarrhea, you are unable to tolerate fluids due to vomiting, fever greater than 101, or other symptoms that concern you. Prescriptions: Diclofenac Sodium [Voltaren] 4 gm TP TID PRN #100 gel..gram. PRN Reason:
[2017-09-08 02:41] VITALS: BP 131/73
== END 2017-09-08 02:41 | disposition home or self-care (01) ==
LOC: ER 21:14
DX: R10.31 Right lower quadrant pain (principal); E78.00 Pure hypercholesterolemia, unspecified; Z88.6 Allergy status to analgesic agent; Z91.013 Allergy to seafood; I25.2 Old myocardial infarction; Z98.51 Tubal ligation status
CPT/HCPCS: 36415; 74176; 80053; 81001; 83690; 85025; 99284

== ENCOUNTER 2018-06-13 18:07 | Emergency (ER) | payer SELFPAY ==
[2018-06-13] MEDS ORDERED: PROCHLORPERAZINE EDISYLATE INJ 10 MG/2 ML VIAL IV ONE (19:36)
[2018-06-13] MEDS ORDERED: DIPHENHYDRAMINE HCL 50 MG/ML VIAL IV ONE (19:36)
--- NOTE | 2018-06-13 19:39 | ER Document Report ---
ED Medical Screen (RME) - General Chief Complaint: Headache Stated Complaint: BLOOD PRESSURE ISSUES Time Seen by Provider: 06/13/18 19:29 TRAVEL OUTSIDE OF THE [place] IN LAST 30 DAYS: No - HPI Notes: 06/13/18 19:36 Patient is a 53-year-old female who presents emergency department complaining of headache primarily to her frontal area, but generally global at this time over the past 2 days. Patient states that she started having some tingling to the left arm today which is been ongoing for most of the day. Patient states that she did have migraines years ago, but does not recall ever having any imaging performed at that time. She does not take any medicines daily. She is otherwise able to eat and drink without difficulty. She is urinating normally. No light sensitivity. Denies any fever, head injury, neck pain, changes in vision/speech/mentation/hearing, URI, sore throat, chest pain, palpitations, syncope, cough, shortness of breath, wheeze, dyspnea, abdominal pain, nausea/vomiting/diarrhea, urinary retention, dysuria, hematuria, loss of control of bowel or bladder, numbness, saddle anesthesia, muscle paralysis/weakness, or rash. I have treated and performed a rapid initial assessment of this patient. A comprehensive ED assessment and evaluation of the patient, analysis of test results and completion of medical decision making process will be conducted by additional ED providers. PHYSICAL EXAMINATION: GENERAL: Well-appearing, well-nourished and in no acute distress. A&Ox4. Answers questions appropriately. HEAD: Atraumatic, normocephalic. Non-tender. EYES: Pupils equal round and reactive to light, extraocular movements intact, sclera anicteric, conjunctiva are normal. No nystagmus. ENT: Nares patent and without discharge. oropharynx clear without exudates. No tonsilar hypertrophy or erythema. Moist mucous membranes. NECK: Normal range of motion, supple without lymphadenopathy. No rigidity/meningismus. No midline tenderness. LUNGS: Breath sounds clear to auscultation bilaterally and equal. No wheezes rales or rhonchi. HEART: Regular rate and rhythm without murmurs, rubs, gallops. Musculoskeletal: Ext's b/l: FROM to passive/active. Strength 5+/5. No deficits noted. No bony tenderness of extremities. Extremities: No cyanosis, clubbing, or edema b/l. Peripheral pulses 2+. Capillary refill less than 2 seconds. NEUROLOGICAL: NIH 0. GCS 15. Cranial nerves grossly intact. Normal speech, normal gait. Normal sensory, motor exams. Reflexes 2+ b/l. KASSIE's negative. Pronator drift negative. Heel/doty, finger/nose wnl. PSYCH: Normal mood, normal affect. SKIN: Warm, Dry, normal turgor, no rashes or lesions noted. - Related Data Allergies/Adverse Reactions: adhesive Allergy (Verified 06/13/18 18:12) aspirin [Aspirin] Allergy (Verified 06/13/18 18:12) ibuprofen [From Motrin] Allergy (Verified 06/13/18 18:12) iodine [Iodine] Allergy (Verified 06/13/18 18:12) ketorolac tromethamine [From Toradol] Allergy (Verified 06/13/18 18:12) nafarelin [Nafarelin] Allergy (Verified 06/13/18 18:12) naproxen [Naproxen] Allergy (Verified 06/13/18 18:12) Shellfish * [Shellfish] Allergy (Verified 06/13/18 18:12) tramadol HCl [From Ultram] Allergy (Verified 06/13/18 18:12) Past Medical History - Social History Family history: Hypertension, Malignancy - Past Medical History Cardiac Medical History: Reports: Hx Heart Attack, Hx Hypercholesterolemia Neurological Medical History: Reports: Hx Migraine Renal/ Medical History: Denies: Hx Peritoneal Dialysis GI Medical History: Reports: Hx Ulcer Musculoskeltal Medical History: Reports Hx Arthritis, Reports Hx Musculoskeletal Deformity, Reports Hx Musculoskeletal Trauma Traumatic Medical History: Reports: Hx Fractures Past Surgical History: Reports: Hx Tubal Ligation - Immunizations Immunizations up to date: Yes Hx Diphtheria, Pertussis, Tetanus Vaccination: Yes Physical Exam - Vital signs Vitals: Temp Pulse Resp BP Pulse Ox 98.5 F 78 16 152/72 H 99 06/13/18 18:19 06/13/18 18:19 06/13/18 18:19 06/13/18 18:19 06/13/18 18:19 Course - Vital Signs Vital signs: Temp Pulse Resp BP Pulse Ox 98.5 F 78 16 152/72 H 99 06/13/18 18:19 06/13/18 18:19 06/13/18 18:19 06/13/18 18:19 06/13/18 18:19
--- NOTE | 2018-06-13 20:41 | RADIOLOGY REPORT (SQ) ---
EXAM DESCRIPTION: CT HEAD WITHOUT IV CONTRAST COMPLETED DATE/TME: 06/13/2018 19:36 CLINICAL HISTORY: 53 years, Female, global AYON EXAM DESCRIPTION: CLINICAL HISTORY: global AYON COMPARISON: None Available TECHNIQUE: Contiguous axial CT images of the head were obtained. Coronal and sagittal reconstructions were created from the axial data. This exam was performed according to our departmental dose-optimization program, which includes automated exposure control, adjustment of the mA and/or kV according to patient size and/or use of iterative reconstruction technique. FINDINGS: There is no evidence of acute mass, mass effect, midline shift or hemorrhage. The ventricles and extra-axial CSF spaces are unremarkable. The brain parenchyma appears normal for the patient's age. No acute abnormalities of the bones is seen. IMPRESSION: No acute intracranial abnormality.
--- NOTE | 2018-06-13 23:05 | ER Document Report ---
ED Headache - General Chief Complaint: Headache Stated Complaint: BLOOD PRESSURE ISSUES Time Seen by Provider: 06/13/18 19:29 Primary Care Provider: [facility] [Outside] - Follow up as needed Mode of Arrival: Ambulatory Information source: Patient Notes: Patient is a 53-year-old female who presents to the emergency department with complaints of headache and elevated blood pressure reading at home. Patient denies any history of hypertension. She reports that her headache has been ongoing for approximately 2 days, states it started gradually. She states that she checked her blood pressure and found to be significantly elevated as outlined in the triage notes. TRAVEL OUTSIDE OF THE [place] IN LAST 30 DAYS: No - Related Data Allergies/Adverse Reactions: adhesive Allergy (Verified 06/13/18 18:12) aspirin [Aspirin] Allergy (Verified 06/13/18 18:12) ibuprofen [From Motrin] Allergy (Verified 06/13/18 18:12) iodine [Iodine] Allergy (Verified 06/13/18 18:12) ketorolac tromethamine [From Toradol] Allergy (Verified 06/13/18 18:12) nafarelin [Nafarelin] Allergy (Verified 06/13/18 18:12) naproxen [Naproxen] Allergy (Verified 06/13/18 18:12) Shellfish * [Shellfish] Allergy (Verified 06/13/18 18:12) tramadol HCl [From Ultram] Allergy (Verified 06/13/18 18:12) Past Medical History - General Information source: Patient - Social History Smoking Status: Never Smoker Frequency of alcohol use: None Drug Abuse: None Family History: Reviewed & Not Pertinent, Hypertension, Malignancy Patient has suicidal ideation: No Patient has homicidal ideation: No - Past Medical History Cardiac Medical History: Reports: Hx Heart Attack, Hx Hypercholesterolemia Neurological Medical History: Reports: Hx Migraine Renal/ Medical History: Denies: Hx Peritoneal Dialysis GI Medical History: Reports: Hx Ulcer Musculoskeletal Medical History: Reports Hx Arthritis, Reports Hx Musculoskeletal Deformity, Reports Hx Musculoskeletal Trauma Traumatic Medical History: Reports: Hx Fractures Past Surgical History: Reports: Hx Tubal Ligation - Immunizations Immunizations up to date: Yes Hx Diphtheria, Pertussis, Tetanus Vaccination: Yes Review of Systems - Review of Systems Constitutional: No symptoms reported EENT: No symptoms reported Cardiovascular: No symptoms reported Respiratory: No symptoms reported Gastrointestinal: No symptoms reported Genitourinary: No symptoms reported Female Genitourinary: No symptoms reported Musculoskeletal: No symptoms reported Skin: No symptoms reported Hematologic/Lymphatic: No symptoms reported Neurological/Psychological: Headaches Physical Exam - Vital signs Vitals: Temp Pulse Resp BP Pulse Ox 98.5 F 78 16 152/72 H 99 06/13/18 18:19 06/13/18 18:19 06/13/18 18:19 06/13/18 18:19 06/13/18 18:19 - Notes Notes: PHYSICAL EXAMINATION: GENERAL: Well-appearing, well-nourished and in no acute distress. HEAD: Atraumatic, normocephalic. EYES: Pupils equal round and reactive to light, extraocular movements intact, conjunctiva are normal. ENT: Nares patent, oropharynx clear without exudates. Moist mucous membranes. NECK: Normal range of motion, supple without lymphadenopathy LUNGS: Breath sounds clear to auscultation bilaterally and equal. No wheezes rales or rhonchi. HEART: Regular rate and rhythm without murmurs ABDOMEN: Soft, nontender, nondistended abdomen. No guarding, no rebound. No masses appreciated. Female : deferred Musculoskeletal: Normal range of motion, no pitting or edema. No cyanosis. NEUROLOGICAL: Cranial nerves grossly intact. Normal speech, normal gait. Normal sensory, motor exams PSYCH: Normal mood, normal affect. SKIN: Warm, Dry, normal turgor, no rashes or lesions noted. Course - Re-evaluation Re-evalutation: Patient was initially seen by provider in triage. Her arrival blood pressure was only mildly elevated with a systolic in the 150s. Patient's headache had completely resolved by the time I evaluated her. She had a head CT performed which was negative for any acute findings. A repeat blood pressure was normal with blood pressure reading 120 systolic. Patient encouraged to [facility] to [facility] care as well as to keep closer track on her blood pressure. Patient given ED return precautions to include sudden onset headache or any new or worsening symptoms. Patient verbalizes understanding and states she is ready to go home. - Vital Signs Vital signs: Temp Pulse Resp BP Pulse Ox 98.3 F 75 18 129/60 H 100 06/13/18 23:24 06/13/18 23:24 06/13/18 23:24 06/13/18 23:24 06/13/18 23:24 Discharge - Discharge Clinical Impression: Normal blood pressure Headache Qualifiers: Headache type: unspecified Headache chronicity pattern: acute headache Intractability: not intractable Qualified Code(s): R51 - Headache Condition: Stable Disposition: HOME, SELF-CARE Additional Instructions: As discussed your blood pressure today was mildly elevated at the time of arrival but normal at the time of discharge. Your head CT was normal and showed no evidence of any abnormality. Please call the [facility] to schedule a comprehensive physical examination. Please return to the emergency department if you develop any new or worsening symptoms to include development of sudden onset headache, chest pain, shortness of breath or any other symptom that is concerning to you. Referrals: [facility] [Outside] - Follow up as needed
[2018-06-13 23:25] VITALS: BP 129/60
== END 2018-06-13 23:41 | disposition home or self-care (01) ==
LOC: ER 18:07
DX: R51 Headache (principal); R03.0 Elevated blood-pressure reading, without diagnosis of hypertension; E78.00 Pure hypercholesterolemia, unspecified; Z88.6 Allergy status to analgesic agent; Z91.013 Allergy to seafood; Z98.51 Tubal ligation status; I25.2 Old myocardial infarction
CPT/HCPCS: 99283; 96374; 96375; 70450; J1200; J0780

== ENCOUNTER → 2018-11-30 | Outpatient (CLI) | payer BC ==
--- NOTE | 2018-11-30 13:31 | WOMENS IMAGING REPORT ---
EXAM DESCRIPTION: BILAT SCREENING MAMMO W/CAD COMPLETED DATE/TIME: 11/30/2018 9:00 am REASON FOR STUDY: Z12.31 SCREENING MAMMO Z12.31 ENCNTR SCREEN MAMMOGRAM FOR MALIGNANT NEOPLASM OF B RE COMPARISON: Multiple since 2009 EXAM PARAMETERS: Standard craniocaudal and mediolateral oblique views of each breast recorded using digital acquisition. Read with the assistance of CAD. .[facility] - [email or web address] [place] Version 9.2 LIMITATIONS: None. FINDINGS: No suspicious masses, suspicious calcifications or architectural distortion. No areas of c oncern. IMPRESSION: Negative MAMMOGRAM. BIRADS 1 BREAST DENSITY: b. There are scattered areas of fibroglandular density. BIRAD: ASSESSMENT: 1 NEGATIVE RECOMMENDATION: ROUTINE SCREENING Please continue yearly bilateral screening mammography/tomosynthesis in November 2019. COMMENT: The patient has been notified of the results by letter per MQSA requirements. Additional no tification policies are in place for contacting patient with suspicious or incomplete findings. Quality ID #[id number]: The [employer] recommends an annual screening mammogram for women aged 40 years or over. This facility utilizes a reminder system to ensure that all patients receive reminder letters, and/or direct phone calls for appointments. This includes reminders for routine scr eening mammograms, diagnostic mammograms, or other Breast Imaging Interventions when appropriate. Th is patient will be placed in the appropriate reminder system. TECHNICAL DOCUMENTATION: FINDING NUMBER: (1) ASSESSMENT: (1) JOB ID: [id number] [employer]- All Rights Reserved Reading location - IP/workstation name: [email or web address]
== END ==
LOC: WI 08:15
PROVIDERS: ATTEND Physician Assistant
DX: Z12.31 Encounter for screening mammogram for malignant neoplasm of breast (principal)
CPT/HCPCS: 77067

== ENCOUNTER 2019-01-01 23:22 | Emergency (ER) | payer BC ==
[2019-01-01 23:55] LABS: ABSOLUTE EOSINOPHILS # (AUTO) 0.1 10^3/uL (0.0-0.6); ABSOLUTE LYMPHOCYTES (AUTO) 3.3 10^3/uL (0.5-4.7); ABSOLUTE MONOCYTES (AUTO) 0.9 10^3/uL (0.1-1.4); BASOPHILS % (AUTO) 0.4 % (0-2); EOSINOPHILS % (AUTO) 0.9 % (0-6); HEMATOCRIT 37.9 % (36.0-47.0); HEMOGLOBIN 12.6 g/dL (12.0-15.5); LYMPHOCYTES % (AUTO) 35.7 % (13-45); MEAN CORPUSCULAR HEMOGLOBIN 28.2 pg (27.0-33.4); MEAN CORPUSCULAR HGB CONC 33.4 g/dL (32.0-36.0); MEAN CORPUSCULAR VOLUME 85 fl (80-97); MONOCYTES % (AUTO) 9.6 % (3-13); PLATELET COUNT 335 10^3/uL (150-450); RED BLOOD COUNT 4.48 10^6/uL (3.72-5.28); RED CELL DISTRIBUTION WIDTH 14.7 % (11.5-14.0); SEGMENTED NEUTROPHILS % (AUTO) 53.4 % (42-78); TOTAL CELLS COUNTED % (AUTO) 100 %; WHITE BLOOD COUNT 9.3 10^3/uL (4.0-10.5)
[2019-01-02 00:10] LABS: ALBUMIN 4.3 g/dL (3.5-5.0); ALKALINE PHOSPHATASE 62 U/L (38-126); ANION GAP 12 (5-19); ASPARTATE AMINO TRANSFERASE 18 U/L (14-36); BILIRUBIN,DIRECT 0.2 mg/dL (0.0-0.4); BILIRUBIN,TOTAL 0.4 mg/dL (0.2-1.3); BLOOD UREA NITROGEN 11 mg/dL (7-20); CALCIUM 9.7 mg/dL (8.4-10.2); CARBON DIOXIDE 24 mmol/L (22-30); CHLORIDE 104 mmol/L (98-107); CREATINE KINASE 198 U/L (30-135); GLUCOSE 93 mg/dL (75-110)
[2019-01-02 00:21] LABS: CREATINE KINASE MB 0.87 ng/mL (<4.55)
[2019-01-02 00:22] LABS: TROPONIN I < 0.012 ng/mL
--- NOTE | 2019-01-02 01:31 | ER Document Report ---
ED General - General Chief Complaint: Chest Pain > 30 Stated Complaint: CHEST PAIN,HEADACHE Time Seen by Provider: 01/02/19 01:15 Primary Care Provider: JJ SIMMS PA-C [Primary Care Provider] - Follow up as needed TRAVEL OUTSIDE OF THE [place] IN LAST 30 DAYS: No - HPI Patient complains to provider of: headache Onset: Last week Onset/Duration: Gradual Severity: Moderate Pain Level: 3 Context: 53 year old female tells me she is here due to headache. She also developed some chest pain earlier tonight but is here due to her headache. Gets daily headaches "for some time." No fever and no myalgias and no tick bite. She denies recent illness. Associated symptoms: Other - sinus congestion Similar symptoms previously: Yes Recently seen / treated by doctor: Yes - Related Data Allergies/Adverse Reactions: adhesive Allergy (Verified 06/13/18 18:12) aspirin [Aspirin] Allergy (Verified 06/13/18 18:12) ibuprofen [From Motrin] Allergy (Verified 06/13/18 18:12) iodine [Iodine] Allergy (Verified 06/13/18 18:12) ketorolac tromethamine [From Toradol] Allergy (Verified 06/13/18 18:12) nafarelin [Nafarelin] Allergy (Verified 06/13/18 18:12) naproxen [Naproxen] Allergy (Verified 06/13/18 18:12) Shellfish * [Shellfish] Allergy (Verified 06/13/18 18:12) tramadol HCl [From Ultram] Allergy (Verified 06/13/18 18:12) Past Medical History - Social History Smoking Status: Never Smoker Chew tobacco use (# tins/day): No Frequency of alcohol use: None Drug Abuse: None Family History: Reviewed & Not Pertinent, Hypertension, Malignancy Patient has suicidal ideation: No Patient has homicidal ideation: No - Past Medical History Cardiac Medical History: Reports: Hx Heart Attack, Hx Hypercholesterolemia Neurological Medical History: Reports: Hx Migraine Renal/ Medical History: Denies: Hx Peritoneal Dialysis GI Medical History: Reports: Hx Ulcer Musculoskeletal Medical History: Reports Hx Arthritis, Reports Hx Musculoskeletal Deformity, Reports Hx Musculoskeletal Trauma Traumatic Medical History: Reports: Hx Fractures Past Surgical History: Reports: Hx Tubal Ligation - Immunizations Immunizations up to date: Yes Hx Diphtheria, Pertussis, Tetanus Vaccination: Yes Review of Systems - Review of Systems Constitutional: No symptoms reported EENT: No symptoms reported Cardiovascular: See HPI Respiratory: No symptoms reported Gastrointestinal: No symptoms reported Genitourinary: No symptoms reported Female Genitourinary: No symptoms reported Musculoskeletal: No symptoms reported Skin: No symptoms reported Hematologic/Lymphatic: No symptoms reported Neurological/Psychological: See HPI. denies: Confusion, Weakness Physical Exam - Vital signs Vitals: Temp Pulse Resp BP Pulse Ox 98.5 F 74 20 136/68 H 97 01/01/19 23:30 01/01/19 23:30 01/01/19 23:30 01/01/19 23:30 01/01/19 23:30 Interpretation: Normal - General General appearance: Appears well, Alert - HEENT Head: Normocephalic, Atraumatic Eyes: Normal Pupils: PERRL - Respiratory Respiratory status: No respiratory distress Chest status: Nontender Breath sounds: Normal Chest palpation: Normal - Cardiovascular Rhythm: Regular Heart sounds: Normal auscultation Murmur: No - Abdominal Inspection: Normal Distension: No distension Bowel sounds: Normal Tenderness: Nontender Organomegaly: No organomegaly - Back Back: Normal, Nontender - Extremities General upper extremity: Normal inspection, Nontender, Normal color, Normal ROM, Normal temperature General lower extremity: Normal inspection, Nontender, Normal color, Normal ROM, Normal temperature, Normal weight bearing. No: Aleksey's sign - Neurological Neuro grossly intact: Yes Cognition: Normal Orientation: AAOx4 Jose Coma Scale Eye Opening: Spontaneous Jose Coma Scale Verbal: Oriented Jose Coma Scale Motor: Obeys Commands Jose Coma Scale Total: 15 Speech: Normal Motor strength normal: LUE, RUE, LLE, RLE Sensory: Normal - Psychological Associated symptoms: Normal affect, Normal mood - Skin Skin Temperature: Warm Skin Moisture: Dry Skin Color: Normal Course - Re-evaluation Re-evalutation: 01/02/19 05:39 MDM 53 year old right handed female with headaches mostly but some chest pain tongiht too. Head Ct is benign. Discussed follow up and she expressed understanding. - Vital Signs Vital signs: Temp Pulse Resp BP Pulse Ox 98.5 F 74 20 136/68 H 97 01/01/19 23:30 01/01/19 23:30 01/01/19 23:30 01/01/19 23:30 01/01/19 23:30 - Laboratory Result Diagrams: 01/01/19 23:41 01/01/19 23:41 Laboratory results interpreted by me: 01/01/19 01/01/19 23:41 23:41 RDW 14.7 H Creatine Kinase 198 H - Diagnostic Test Radiology reviewed: Reports reviewed - EKG Interpretation by Me EKG shows normal: Sinus rhythm Rate: Normal - NSR NL [place] [address] elevation or depression repolarization abnormality, Discharge - Discharge Clinical Impression: Chest pain at rest Headache Qualifiers: Headache type: tension-type Headache chronicity pattern: acute headache Intractability: not intractable Qualified Code(s): G44.209 - Tension-type headache, unspecified, not intractable Condition: Good Disposition: HOME, SELF-CARE Instructions: Chest Pain of Unclear Cause ([facility]), Tension Headache ([facility]) Additional Instructions: See your doctor or the referral doctor in follow up. Rest. Take the medicine as directed for headache. Prescriptions: Butalb/Acetaminophen/Caffeine [Fioricet (50-325-40 mg) Tablet] 1 tab PO Q4HP PRN #30 tab PRN Reason: Referrals: JJ SIMMS PA-C [Primary Care Provider] - Follow up as needed
[2019-01-02 05:58] VITALS: BP 118/59
--- NOTE | 2019-01-02 11:05 | RADIOLOGY REPORT (SQ) ---
EXAM DESCRIPTION: XR CHEST 2 VIEWS COMPLETED DATE/TME: CLINICAL HISTORY: 53 years Female, chest pain COMPARISON:May 13 2017 NUMBER OF VIEWS/TECHNIQUE: 2, Frontal, Lateral FINDINGS: Adequate lung volume, clear parenchyma, normal cardiac silhouette, and intact bony thorax. IMPRESSION: No acute cardiopulmonary findings.
--- NOTE | 2019-01-02 11:12 | RADIOLOGY REPORT (SQ) ---
CT HEAD WITHOUT IV CONTRAST EXAM DATE: 01/02/2019 12:51 AM [employer]IC[employer] HE[employer]ENT HISTORY: Headache for one week. COMPARISON: 06/13/2018 TECHNIQUE: CT scan of the brain without IV contrast. This exam was performed according to our departmental dose-optimization program, which includes automated exposure control, adjustment of the mA and/or kV according to patient size and/or use of iterative reconstruction technique. FINDINGS: The ventricles, cisterns, and sulci are age-appropriate. No evidence of acute infarction, intracranial hemorrhage, extra-axial fluid collection, or midline shift. There is a tiny mucous retention cyst in the left maxillary sinus. No air-fluid levels to suggest acute sinusitis however. No depressed skull fracture. IMPRESSION: No acute intracranial findings.
--- NOTE | 2019-01-03 00:01 | EKG REPORT ---
SEVERITY:- BORDERLINE ECG - SINUS RHYTHM BORDERLINE T ABNORMALITIES, ANT-LAT LEADS : Confirmed by: Santino Beckett 03-Jan-2019 00:00:01
== END 2019-01-02 05:58 | disposition home or self-care (01) ==
LOC: ER 23:22
DX: G44.209 Tension-type headache, unspecified, not intractable (principal); R07.9 Chest pain, unspecified; I25.2 Old myocardial infarction
CPT/HCPCS: 36415; 70450; 71046; 80053; 82550; 82553; 84484; 85025; 93005; 93010; 99285

== ENCOUNTER → 2019-01-04 | Outpatient (CLI) | payer BC ==
--- NOTE | 2019-01-04 12:06 | RADIOLOGY REPORT (SQ) ---
EXAM DESCRIPTION: L SPINE 2 VIEWS COMPLETED DATE/TIME: 01/04/2019 11:56 am REASON FOR STUDY: LBP (M54.5) M54.5 LOW BACK PAIN COMPARISON: 08/14/2011 NUMBER OF VIEWS: Two views. TECHNIQUE: AP and lateral radiographic images acquired of the lumbar spine. LIMITATIONS: None. FINDINGS: MINERALIZATION: Normal. SEGMENTATION: Normal. No transitional anatomy. ALIGNMENT: Normal. VERTEBRAE: Maintained height. No fracture or worrisome bone lesion. DISCS: Preserved height. No significant osteophytes or end plate irregularity. POSTERIOR ELEMENTS: Pedicles and facets are intact. No pars defect or posterior arch defects. HARDWARE: None in the spine. PARASPINAL SOFT TISSUES: Normal. PELVIS: Intact as visualized. No fractures or worrisome bone lesions. SI joints intact. OTHER: No other significant finding. IMPRESSION: NORMAL 2 VIEW LUMBAR SPINE. TECHNICAL DOCUMENTATION: JOB ID: [id number] [employer]- All Rights Reserved Reading location - IP/workstation name: [email or web address]
--- NOTE | 2019-01-04 12:06 | RADIOLOGY REPORT (SQ) ---
EXAM DESCRIPTION: L SPINE FLEX/EXT ONLY COMPLETED DATE/TIME: 01/04/2019 11:56 am REASON FOR STUDY: LOW BACK PAIN (M54.5) M54.5 LOW BACK PAIN COMPARISON: None. NUMBER OF VIEWS: Two view. TECHNIQUE: Lateral views of the lumbar spine with flexion and extension. LIMITATIONS: None. FINDINGS: MINERALIZATION: Normal. SEGMENTATION: Normal. No transitional anatomy. ALIGNMENT: Normal. FLEXION/EXTENSION: No instability. VERTEBRAE: Maintained height. No fracture or worrisome bone lesion. DISCS: Preserved height. No significant osteophytes or end plate irregularity. POSTERIOR ELEMENTS: Pedicles and facets are intact. No pars defect or posterior arch defects. HARDWARE: None in the spine. OTHER: No other significant finding. IMPRESSION: NO SIGNIFICANT FINDING IN THE SPINE. NO INSTABILITY ON FLEXION/EXTENSION. TECHNICAL DOCUMENTATION: JOB ID: [id number] [employer]- All Rights Reserved Reading location - IP/workstation name: [email or web address]
== END ==
LOC: RAD 11:27
PROVIDERS: ATTEND Physician Assistant
DX: M54.5 Low back pain (principal)
CPT/HCPCS: 72100; 72120